=== PATIENT | female | born 1995 | race Caucasian/White ===

== ENCOUNTER 2017-09-30 08:43 | Emergency (ER) | payer OTHER ==
[~2017-09-30] VITALS: Ht 167.6 cm; Wt 68.0 kg
[~2017-09-30 08:43] MED LIST: CITA20 PO; Norco 5-325 Ta1 EACH PO; Robaxin500 MG PO; Vistaril25 MG PO
== END 2017-09-30 09:57 | disposition home or self-care (01) ==
LOC: ER 08:43
DX: J04.0 Acute laryngitis (principal); F41.9 Anxiety disorder, unspecified; F32.9 Major depressive disorder, single episode, unspecified; F17.290 Nicotine dependence, other tobacco product, uncomplicated; Z79.899 Other long term (current) drug therapy
CPT/HCPCS: 87081; 87430; 99283; J1100

== ENCOUNTER 2019-01-11 20:34 | Emergency (ER) | payer OTHER ==
[~2019-01-11] VITALS: Ht 165.1 cm; Wt 66.2 kg
[2019-01-11] MEDS ORDERED: KETO10 PO (20:50)
[2019-01-11] MEDS ORDERED: TRIDERM28.4 GM TOP (20:54)
== END 2019-01-11 21:00 | disposition home or self-care (01) ==
LOC: ER 20:34
DX: J02.0 Streptococcal pharyngitis (principal); J03.00 Acute streptococcal tonsillitis, unspecified; F17.290 Nicotine dependence, other tobacco product, uncomplicated
CPT/HCPCS: 87430; 96372; 99282-25; J0561